=== PATIENT | male | born 1965 | race Caucasian/White ===

== ENCOUNTER 2020-04-02 06:26 | Day surgery (SDC) | payer OTHER ==
[2020-03-26 15:32] LABS: CLARITY,URINE CLEAR (Clear); COLOR,URINE YELLOW (Yellow); GLUCOSE, URINE NEGATIVE (Neg); KETONES,URINE NEGATIVE (Neg); LEUKOCYTE ESTERASE ,URINE NEGATIVE (Neg); NITRITES, URINE NEGATIVE (Neg); OCCULT BLOOD,URINE NEGATIVE (Neg); PROTEIN,URINE NEGATIVE (Neg); UROBILINOGEN,URINE 0.2 E.U/dL (0.2-1.0)
[2020-03-26 15:40] LABS: BASOPHILS % (AUTO) 0.6 % (0-1); EOSINOPHILS # (AUTO) 0.2 X10'3 (0-0.9); EOSINOPHILS % (AUTO) 3.3 % (0-6); LYMPHOCYTES # (AUTO) 1.7 X10'3 (1.1-4.8); MEAN CORPUSCULAR HEMOGLOBIN 30.3 PG (27.0-31.0); MEAN CORPUSCULAR HGB CONC 33.3 g/dL (33.0-36.5); MEAN CORPUSCULAR VOLUME 90.9 FL (78-98); MEAN PLATELET VOLUME 7.2 FL (7.4-10.4); MONOCYTES # (AUTO) 0.6 X10'3 (0-0.9); MONOCYTES % (AUTO) 9.2 % (2-12); NEUTROPHILS # (AUTO) 4.2 X10'3 (1.8-7.7); NEUTROPHILS % (AUTO) 61.9 % (42-75); PRE OP HEMATOCRIT 45.2 % (42.0-52.0); PRE OP HEMOGLOBIN 15.1 g/dL (14.0-17.9); PRE OP PLATELET COUNT 270 X10'3 (140-440); RED BLOOD COUNT 4.97 X10'6 (4.70-6.10); RED CELL DISTRIBUTION WIDTH 13.7 % (11.5-14.5)
[2020-03-26 15:40] LABS: UA COLLECTION TYPE CLN CATCH MIDSTREAM
[2020-03-26 15:51] LABS: ALBUMIN/GLOBULIN RATIO 1.1 (1.1-1.5); ALKALINE PHOSPHATASE 64 IU/L (46-116); BLOOD UREA NITROGEN 21 MG/DL (7-18); BUN/CREATININE RATIO 18.3 (5.4-32.0); CALCIUM 9.5 MG/DL (8.5-10.1); CHLORIDE 104 MMOL/L (99-107); CREATININE 1.15 MG/DL (0.60-1.10); PRE OP ALT 32 U/L (30-65); PRE OP ANION GAP 9 (8-16); PRE OP AST 20 U/L (10-37); PRE OP BILIRUB, TOTAL 0.2 MG/DL (0.0-1.0); PRE OP GLUCOSE 89 MG/DL (70-104); PRE OP POTASSIUM 4.2 MMOL/L (3.4-5.1); PRE OP SODIUM 142 MMOL/L (135-145); TOTAL CARBON DIOXIDE 29.3 MMOL/L (24-32); TOTAL PROTEIN 7.5 G/DL (6.4-8.2); eGFR 66 ML/MIN
[~2020-04-02] VITALS: Ht 172.7 cm; Wt 74.8 kg
[2020-04-02] VITALS (9 sets, daily range): BP systolic 126–147; BP diastolic 51–95
[~2020-04-02 06:26] MED LIST: MULT-467 PO; SAW/1TAB2 PO; TRAZ150T78 PO; cefazolin/dext.iso 2gm/50ml 50 ML IV ONE; famotidine 20mg tablet PO ONE; nitroPRUSSIDE in NS 100 ML IV PRN; nitroPRUSSIDE sod inj. 50 MG in dextrose 5%-water 250 ML IV SCH; phenylephrine inj 50 MG in normal saline 250ml IV soln 250 ML IV PRN; ringers solution, lacted 1,000 ML IV SCH
[2020-04-02] MEDS ORDERED: BUPIVAcaine/PF 2.5mg/ml (0.25%) 10ml vial ONE (07:21)
[2020-04-02] MEDS ORDERED: midazolam 2 mg/2 ml injection ONE (07:50)
[2020-04-02] MEDS ORDERED: rocuronium 10mg/ml inj IV ONE (07:50)
[2020-04-02] MEDS ORDERED: fentaNYL/PF 50MCG/1 ML 2ML syringe ONE (07:50)
[2020-04-02] MEDS ORDERED: propofol inj 20 ML IV ONE (07:50)
[2020-04-02] MEDS ORDERED: sevoflurane 250ml liquid IH ONE (07:51)
[2020-04-02] MEDS ORDERED: ringers solution, lacted 1,000 ML IV SCH (08:10)
[2020-04-02] MEDS ORDERED: meperidine/PF 25mg/ml syringe IV PRN ×3 (08:10)
[2020-04-02] MEDS ORDERED: ondansetron/PF 4mg/2ml inj IV PRN (08:10)
[2020-04-02] MEDS ORDERED: morphine 4 MG/ML inj SYRINge IV PRN (08:10)
[2020-04-02] MEDS ORDERED: morphine 2 MG/ML inj. syringe IV PRN (08:10)
[2020-04-02] MEDS ORDERED: proCHLORperazine 10 MG/2 ml inj IV PRN (08:10)
[2020-04-02] MEDS ORDERED: dexamethasone sod phosphate 4mg/ml inj. ONE (08:31)
[2020-04-02] MEDS ORDERED: ondansetron/PF 4mg/2ml inj ONE (08:31)
[2020-04-02] MEDS ORDERED: sugammadex 200mg/2ml injection IV ONE (08:33)
--- NOTE | 2020-04-02 08:48 | NUR ---
Received from OR via [facility], accompanied by Anesthesiologist ILEANA and report given by Anesthesiolgist. VS stable, O2 mask to 10L, sats 98%. 20G left forearm with LR 100cc/hr. Inguinal hernia surgical sites derma-ham open to air CDI. Palpable pulses, moves all extremeties, sleepy but responsive to stimuli and questions.
[2020-04-02] MEDS ORDERED: HYDROcodone/acetaminophen 10/325mg tab PO ONE (09:40)
--- NOTE | 2020-04-02 10:58 | NUR ---
Pt discharged to vehicle without incident, received pt to vehicle. IV dc'd. Pt verbalised understanding for all DC information as did when it was reviewed with her on the phone. 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 Educated on mobilization and no heavy lifting. Pt did void, ambulate and tolerate fluids prior to leaving.
== END 2020-04-02 10:58 | disposition home or self-care (01) ==
LOC: PAS 06:26
PROVIDERS: ATTEND Surgery
DX: K40.91 Unilateral inguinal hernia, without obstruction or gangrene, recurrent (principal); K41.91 Unilateral femoral hernia, without obstruction or gangrene, recurrent; Z79.899 Other long term (current) drug therapy; Z98.890 Other specified postprocedural states; Z87.01 Personal history of pneumonia (recurrent); Z11.59 Encounter for screening for other viral diseases; Z80.8 Family history of malignant neoplasm of other organs or systems
CPT/HCPCS: 36415; 49651; 80053; 81003; 82948; 85025; 93005; C1781; C9399; J1100; J2250; J2370; J2405; J2704; J3010; J3490; J7050; J7060; J7120; U0003; A4215; A4314; A4618; A6258